=== PATIENT | female | born 2000 | race African-American/Black ===

== ENCOUNTER 2018-04-06 00:36 | Day surgery (SDC) | payer OTHER ==
[2018-04-06 01:25] VITALS: BP 118/73; TEMP 98.8
[2018-04-06 01:26] VITALS: BMI 30.7
--- NOTE | 2018-04-06 08:02 | PRG ---
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 Fernando Conde. CHIEF COMPLAINT: Abdominal pains. HISTORY OF PRESENT ILLNESS: The patient is a 17-year-old G2, P1 female with an intrauterine pregnanc y at 34 weeks and 2 days, who is followed by Dr. Fernando Conde and presents with uterine contractions that began about 9:00 p.m. The patient reports that the contractions have since spaced out and dissi pated at the time of our evaluation. The patient denies any vaginal bleeding, leakage of fluid, fall s, headache, chest pain, shortness of breath, nausea, vomiting, diarrhea, constipation. She denies a ny new rashes, hip problems, knee problems, muscle weakness, urinary urgency or frequency. Her last baby was delivered at term. PAST MEDICAL HISTORY: Negative. PAST SURGICAL HISTORY: Negative. ALLERGIES: No known drug allergies. MEDICATIONS: Iron and vitamins. SOCIAL HISTORY: Denies drug, alcohol, or tobacco use. OB LABS: Unavailable at time of dictation. REVIEW OF SYSTEMS: Per HPI. PHYSICAL EXAMINATION: VITAL SIGNS: Blood pressure 118/73, heart rate of 107, respiratory rate of 18, temperature 98.8. GENERAL: She appears to be in no acute distress. She is alert and oriented, cooperative and pleasan t to interact with. HEAD: Normocephalic, atraumatic. LUNGS: Clear to auscultation bilaterally. HEART: Regular rate and rhythm. ABDOMEN: Soft and nontender to palpation. EXTREMITIES: Nontender, nonedematous. GENITOURINARY EXAM: Cervix is closed, thick, and high per nursing staff. heart tracing and NST performed for abdominal pain in . Duration is about 40 minutes. Baseline is 140s with moderate long-term variability, positive accelerations, no decelerations. To cometer shows some irritability, but not felt by the patient. ASSESSMENT AND PLAN: The patient is a 17-year-old G2, P1 female with an intrauterine at 34 weeks and 2 days, who is presenting with uterine contractions that began around 09:00 p.m. but it is since much improved, nearly gone by the time the patient was presenting to the ER and seen by myself . The patient has no evidence of active labor, has a closed cervix, and a reactive fetus. The patie nt was given reassurance and discharged home with instructions to follow up with her primary OB as sc heduled.
== END 2018-04-06 01:57 | disposition home or self-care (01) ==
LOC: L&D/OP 00:36
PROVIDERS: ATTEND Family Medicine
DX: O47.03 False labor before 37 completed weeks of gestation, third trimester (principal); Z3A.34 34 weeks gestation of pregnancy
CPT/HCPCS: 99282